=== PATIENT | female | born 1985 | race Caucasian/White ===

== ENCOUNTER 2016-12-13 16:22 | Emergency (ER) | payer OTHER ==
[~2016-12-13] VITALS: Ht 167.6 cm; Wt 81.6 kg
[2016-12-13] MEDS ORDERED: ESLI800T PO (16:50)
[2016-12-13] MEDS ORDERED: BRIV100T PO (16:50)
[2016-12-13] MEDS ORDERED: CLOB10TA PO (16:50)
[2016-12-13] MEDS ORDERED: CARB200T2 PO (16:50)
--- NOTE | 2016-12-13 17:14 | NUR ---
DR CALVO AT THE BEDSIDE FOR EVAL AND EXAM.
--- NOTE | 2016-12-13 17:40 | NUR ---
pt's mother signed waiver on behalf of pt( pt is mute and mentally challanged).
[2016-12-13] MEDS ORDERED: IBUPROFEN 800 MG TABLET PO ONE (18:30)
[2016-12-13 18:31] VITALS: BP 112/66
[2016-12-13] MEDS ORDERED: IBUPROFEN 800 MG TABLET ONE (18:37)
--- NOTE | 2016-12-13 18:37 | NUR ---
Patient discharged to home in stable conditon. Written and verbal after care instructions given to pt's mother, verbalizes understanding of instructions. pt left er accompained by family w/ steady gait.
== END 2016-12-13 18:37 | disposition home or self-care (01) ==
LOC: ER 16:30
DX: S09.90XA Unspecified injury of head, initial encounter (principal); M54.2 Cervicalgia; R51 Headache; W18.30XA Fall on same level, unspecified, initial encounter; Y93.89 Activity, other specified; Y99.8 Other external cause status; Y92.89 Other specified places as the place of occurrence of the external cause
CPT/HCPCS: 70450; 72125; A4663